=== PATIENT | female | born 1955 | race Caucasian/White ===

== ENCOUNTER 2020-02-08 05:22 | Inpatient (IN) | payer OTHER ==
[~2020-02-08] VITALS: Ht 160 cm; Wt 54.2 kg
[2020-02-08 05:25] VITALS: BP 107/54
[2020-02-08 06:12] LABS: URINE BILIRUBIN NEGATIVE (Negative); URINE BLOOD 1+ (Negative); URINE COLOR YELLOW; URINE GLUCOSE-RANDOM* NEGATIVE (Negative); URINE KETONES NEGATIVE (Negative); URINE PROTEIN (DIPSTICK) TRACE (Negative); URINE SPECIFIC GRAVITY 1.025 (1.005-1.035); URINE UROBILINOGEN 0.2 E.U./dl (0.2-1.0)
[2020-02-08 06:17] LABS: URINE LEUKOCYTES-REFLEX 3+ (Negative); URINE NITRITE-REFLEX POSITIVE (Negative)
[2020-02-08 06:18] LABS: URINE CLARITY CLOUDY
[2020-02-08] MEDS ORDERED: ALPRAZOLAM 0.50.5 M1 PO (06:18)
[2020-02-08] MEDS ORDERED: PROAIR HFA8.5 GM INH (06:18)
[2020-02-08] MEDS ORDERED: IBUPROFEN 400400 M1 PO (06:19)
[2020-02-08 08:33] LABS: AMORPHOUS URATES Moderate /LPF (None Seen); BACTERIA-REFLEX >30 Many /HPF (None Seen); CASTS None Seen /LPF (None Seen); SQUAMOUS 0-3 Few /LPF (0-3); URINE WBC-REFLEX >25 Many /HPF (0-5)
[2020-02-08 08:34] LABS: URINE RBC 3-10 Few /HPF (0-2)
[2020-02-08] MEDS ORDERED: LEXAPRO 10 MG T10 M1 PO (10:45)
[2020-02-08 13:40] VITALS: BP 107/64
[2020-02-08 19:42] VITALS: BP 150/90
[2020-02-09 07:54] VITALS: BP 110/65
[2020-02-09 19:34] VITALS: BP 101/50; BP 167/77
[2020-02-09 21:46] VITALS: BP 110/65
[2020-02-10 08:15] VITALS: BP 118/59
[2020-02-10 19:41] VITALS: BP 150/78
[2020-02-11 09:46] VITALS: BP 131/67
[2020-02-11 20:29] VITALS: BP 143/87
[2020-02-12] MEDS ORDERED: KEFLEX500 M1 PO (08:45)
[2020-02-12] MEDS ORDERED: GABAPENTIN 100100 MG PO (08:46)
[2020-02-12] MEDS ORDERED: PEPCID20 MG PO (08:47)
[2020-02-12 09:02] VITALS: BP 109/64; BP 128/82
== END 2020-02-12 10:10 | disposition home or self-care (01) | DRG 881 ==
LOC: ER 05:22 → EROBS 06:17 → SBH 06:17
PROVIDERS: Emergency Medicine; ADMIT Psychiatry & Neurology Psychiatry; ATTEND Psychiatry & Neurology Psychiatry
DX: F32.9 Major depressive disorder, single episode, unspecified (principal); N39.0 Urinary tract infection, site not specified; F29 Unspecified psychosis not due to a substance or known physiological condition; J44.9 Chronic obstructive pulmonary disease, unspecified; M19.90 Unspecified osteoarthritis, unspecified site; Z60.2 Problems related to living alone; F43.20 Adjustment disorder, unspecified; I10 Essential (primary) hypertension; F41.9 Anxiety disorder, unspecified; F17.210 Nicotine dependence, cigarettes, uncomplicated; F39 Unspecified mood [affective] disorder; Z20.828 Contact with and (suspected) exposure to other viral communicable diseases; Z88.2 Allergy status to sulfonamides; Z88.7 Allergy status to serum and vaccine; Z88.8 Allergy status to other drugs, medicaments and biological substances; Z71.6 Tobacco abuse counseling; Z79.899 Other long term (current) drug therapy
CPT/HCPCS: 10880